=== PATIENT | female | born 1950 | race Caucasian/White ===

== ENCOUNTER → 2018-05-26 | Outpatient (CLI) | payer OTHER ==
[~2018-05-26] MED LIST: CALCIUM600 MG PO; CO Q-10 100 MG1 EACH PO; FISH OIL 1,0001 EAC1 PO; GLIPIZIDE5 MG PO; METFORMIN HCL500 MG PO; ONE DAILY1 EACH PO; OSTERA TABLET1 EACH PO; PRAVASTATIN PO
== END ==
LOC: RAD 14:55
PROVIDERS: ATTEND Family Medicine
DX: R22.41 Localized swelling, mass and lump, right lower limb (principal); M79.89 Other specified soft tissue disorders; I77.89 Other specified disorders of arteries and arterioles
CPT/HCPCS: 93970

== ENCOUNTER 2020-04-30 06:33 | Observation (INO) | payer MEDICARE, OTHER ==
--- NOTE | 2020-04-26 15:16 | Diagnostic Imaging Report ---
Exam: CHEST 2 VIEWS Date: 04/26/2020 3:12 PM INDICATION: ^PRE OP Comparison: None FINDINGS: Lines/Tubes:None Lungs:The lungs are well inflated. No focal consolidation or pulmonary edema. Pleura:No pleural effusion. No pneumothorax. Heart/Mediastinum:Cardiomediastinal silhouette is mildly enlarged. Mild central vascular congestion is noted. Thoracic aorta is tortuous. Bones/Soft Tissues: No acute osseous abnormality. Moderate multilevel degenerative changes of the spine are noted. Upper abdomen: Unremarkable. IMPRESSION: Negative for acute intrathoracic process. Mild cardio megaly and central vascular congestion are noted. Signed by: Chester Strickland MD on 04/26/2020 3:13 PM
[~2020-04-30] VITALS: Ht 165.1 cm; Wt 96.2 kg
[~2020-04-30 06:33] MED LIST changes: +AMOXICILLIN250 MG PO; +FENOFIBRATE145 MG PO; +GABAPENTIN100 MG PO; +GLIMEPIRIDE2 MG PO; +MELOXICAM7.5 MG PO; +PROVENTIL HFA6.7 GM INH; +TRAZODONE HCL100 MG PO; +TYLENOL PO
[2020-04-30] MEDS ORDERED: CELECOXIB 200 MG CAP ONE (07:18)
[2020-04-30] MEDS ORDERED: DEXAMETHASONE SOD PHOS 10 MG/1 ML VIAL ONE (07:19)
[2020-04-30] MEDS ORDERED: CEFAZOLIN SOD 1 GM/NS 50ML 100 ML IV ONE (07:19)
[2020-04-30] MEDS ORDERED: GABAPENTIN 300 MG CAP ONE (07:19)
[2020-04-30] MEDS ORDERED: TRANEXAMIC ACID 1,000 MG/10 ML ML ONE (07:52)
[2020-04-30] MEDS ORDERED: SODIUM CHLORIDE 0.9% 500ML 500 ML ONE ×2 (07:52→08:22)
[2020-04-30] MEDS ORDERED: VANCOMYCIN HCL 1,000 MG ONE (07:52)
[2020-04-30] MEDS ORDERED: CEFAZOLIN SOD 1 GM VIAL ONE (08:21)
[2020-04-30] MEDS ORDERED: ROPIVACAINE 246.25 MG, EPINEPHRINE HCL 1:1000 1ML 0.5 MG, CLONIDINE HCL 0.08 MG, KETORO... INJ ONE ×5 (08:30)
[2020-04-30] MEDS ORDERED: DIPHENHYDRAMINE HCL INJ 50 MG/ML VIAL IV PRN (09:45)
[2020-04-30] MEDS ORDERED: ACETAMINOPHEN 650 MG SUPP PR PRN (09:45)
[2020-04-30] MEDS ORDERED: DOCUSATE SODIUM 100 MG CAP PO PRN (09:45)
[2020-04-30] MEDS ORDERED: ONDANSETRON HCL INJ 2MG/ML 2ML 2 MG/ML VIAL IV PRN (09:45)
--- NOTE | 2020-04-30 10:06 | Operative Report ---
DATE OF PROCEDURE: 04/30/2020 SURGEON: Erwin Post MD HOROLOGIST APPRENTICE: Jarrett Kinney PA-C PREOPERATIVE DIAGNOSIS: Osteoarthritis, left knee. POSTOPERATIVE DIAGNOSIS: Osteoarthritis, left knee. PROCEDURE: Left total knee arthroplasty. INDICATIONS: The patient is a 69-year-old lady, who has end-stage arthritis of her left knee. She has failed conservative management and would like to proceed with a left total knee replacement. The risks and benefits of the procedure have been discussed. All of her questions have been answered. She states she understands and wishes to proceed. PROCEDURE IN DETAIL: The patient was brought to the operating room and placed under general anesthetic. She received prophylactic antibiotics and a regional block and tranexamic acid in the holding area. Her left lower extremity was prepped and draped in a sterile manner. A preoperative time-out was performed. The extremity was exsanguinated and a proximal tourniquet was inflated to 300 mmHg. An anterior incision with a medial parapatellar arthrotomy was performed. Clear synovial fluid was removed from the joint. Soft tissue releases were performed to bring the knee up into flexion with the patella everted. Meniscal remnants, the cruciate ligaments, and marginal osteophytes were removed. A [employer] posterior stabilized knee system was used. An extramedullary cutting guide was used to resect the proximal tibia. The tibial base plate was a size 4. The central fin punch was impacted and attention was directed towards the distal femur. An intramedullary cutting guide was used to resect the distal femur in 5 degrees of valgus and rotation, referencing off a combination of landmarks including Whitesides line, the epicondylar axis, and the posterior condyles. The femoral component was a size 5. The anterior and posterior cuts were made. Trial reductions were performed. A 9 mm ultracongruent tibial insert provided appropriate soft tissue balancing in full extension and 90 degrees of flexion. The patella was resurfaced with a 29 mm x 7.5 mm patellar button. The thickness was checked before and after and was right at 21 mm. Patellar tracking was noted to be concentric. The trial implants were removed. A 100 mL premixed pericapsular BEBETO injection was placed into the surrounding soft tissue. The knee was thoroughly irrigated with a shower tip pulsatile lavage. The components were cemented into place using a single mix of high viscosity Biomet cement, preloaded with antibiotics. Care was taken to remove all extravasated cement. The wound was further irrigated while the cement cured. The arthrotomy was closed after sprinkling 1 g of Ancef powder into the deep joint. The knee was put through flexion and extension to ensure a secure closure of the arthrotomy. The skin was closed with subcuticular Vicryl and harry. A sterile Aquacel bandage was applied. The patient was extubated and transported to the recovery room in stable condition. Blood loss was minimal. All needle and sponge counts were correct. Erwin Post MD DR/BOB /[id number]
[2020-04-30] MEDS ORDERED: FENTANYL CITRATE/PF 100MCG/2 ML INJ ONE ×2 (10:22→19:42)
[2020-04-30] MEDS ORDERED: INSULIN REGULAR, HUMAN 100 UNIT/1 ML 3ML VIAL ONE (10:27)
--- NOTE | 2020-04-30 10:38 | Diagnostic Imaging Report ---
Left knee, 2 views INDICATION: ^post op ^[id number] ^1000 ^n Comparison: None available. Discussion: Postoperative changes from 2 part left knee cemented arthroplasty are noted with patellofemoral resurfacing and spacer. Air and edema are identified within the suprapatellar joint and superficial soft tissues. Femoral and tibial components are in anatomic alignment. No overhang of the tibial component is noted. No notching of the femoral component is noted. Midline anterior skin harry are noted. IMPRESSION: Anatomic alignment postsurgical changes of the 2 part cemented left knee arthroplasty as described above. Signed by: Chester Strickland MD on 04/30/2020 10:35 AM
--- NOTE | 2020-04-30 11:00 | NUR ---
Received patient from PACU via stretcher. Pt groggy but in no apparent distress. Pt denies pain 0/10.
--- NOTE | 2020-04-30 11:23 | NUR ---
Patient request BEZEL CUTTER look for family in waiting area and BEZEL CUTTER unable to find family after several attempts.
[2020-04-30] MEDS: SODIUM CHLORIDE 0.9% 1000ML 1,000 ML IV SCH ×2 (11:32→12:00)
[2020-04-30 11:48] VITALS: BP 131/59
[2020-04-30] MEDS ORDERED: ACETAMINOPHEN 1000 MG/100 ML IV PRN (12:00)
[2020-04-30 12:11] VITALS: BP 131/59
[2020-04-30] MEDS ORDERED: DEXTROSE 50% SYRINGE 50 ML IV PRN (13:15)
[2020-04-30 16:26] VITALS: BP 146/65
[2020-04-30] MEDS: CELECOXIB 100 MG CAP PO SCH (16:40)
[2020-04-30] MEDS: CEFAZOLIN SOD 1 GM/NS 50ML 50 ML IV SCH (16:40)
[2020-04-30] MEDS: GABAPENTIN 100 MG CAP PO SCH (16:40)
[2020-04-30] MEDS: ASPIRIN 325 MG TAB PO SCH (16:40)
[2020-04-30] MEDS: INSULIN REGULAR, HUMAN 100 UNIT/1 ML 3ML VIAL SQ SCH ×2 (17:05→21:00)
[2020-04-30] MEDS: HYDROCODONE/APAP 5MG-325MG TAB PO PRN (17:35)
--- NOTE | 2020-04-30 18:10 | NUR ---
Patient CPM started. Pt tolerating well.
--- NOTE | 2020-04-30 19:00 | NUR ---
Report given to off going nurse. Pt lying in bed semi-fowlers and no apparent distress on CPM. Pt pain 06/24.
--- NOTE | 2020-04-30 19:28 | History and Physical ---
CHIEF COMPLAINT: Left knee osteoarthritis, status post left total knee arthroplasty. HISTORY OF PRESENT ILLNESS: This is a 69-year-old female, multiple comorbidities of type 2 diabetes and hypertension, has chronic left knee pain, underwent status post left knee total arthroplasty performed today by Dr. Post, Orthopedics. The patient was seen postoperatively. She is currently doing well with no complaints. She reports the pain is well controlled. Denies any chest pain, palpitation, nausea, or vomiting. The patient was seen and evaluated at bedside on the medical floor. She is currently doing well with no other issues at this time. REVIEW OF SYSTEMS: Pertinent positive: Chronic left knee pain. The rest of 14-point review of systems have been reviewed with the patient and are negative. ALLERGIES: LEVAQUIN AND VANCOMYCIN. HOME MEDICATIONS: Albuterol, amoxicillin, fenofibrate, glimepiride, meloxicam, trazodone, multivitamin, calcium, Tylenol, and gabapentin. PAST MEDICAL HISTORY: Hyperlipidemia, chronic osteoarthritis, and type 2 diabetes. PAST SURGICAL HISTORY: Status post total left knee arthroplasty. PAST FAMILY HISTORY: Hypertension and diabetes. SOCIAL HISTORY: No drugs. No alcohol. Does not smoke. Good social support. PHYSICAL EXAMINATION: VITAL SIGNS: Temperature is 97.8, pulse 75, respirator rate is 18, blood pressure 146/65, and pulse ox 95% on room air. GENERAL: Not in acute distress. Alert and oriented x3. Cooperative on examination. HEENT: Head; normocephalic, atraumatic. Eyes; pupils are equal, round, and reactive to light bilaterally. PULMONARY: Clear to auscultation bilaterally. No wheezing, no rales, no rhonchi, no crackles appreciated. CARDIOVASCULAR: Positive S1 and S2. No murmurs, rubs, or gallops appreciated. ABDOMEN: Soft, nondistended, and nontender to palpation. Bowel sounds present. MUSCULOSKELETAL: Strength is 5/5 throughout. No evidence of any muscle deficits on examination. SKIN: Intact. Warm to touch. Good cap refill. PSYCHIATRIC: Normal affect and mood. EXTREMITIES: No edema. Good range of motion throughout. LABORATORY FINDINGS: Show CBC none. Chemistry none reported. Serology; coronavirus not detected. IMAGING STUDIES: X-ray of the chest negative for acute intrathoracic process. Mild cardiomegaly with central vascular congestion are noted. Knee x-ray postoperative anatomic align, postsurgical changes of the left knee arthroplasty as described above. IMPRESSION: 1. Chronic left knee osteoarthritis, status post total left knee arthroplasty performed today, 04/30/2020. 2. Type 2 diabetes. 3. Hypertension. PLAN: At this time, continue with postop care, pain control, physical therapy, and occupational therapy. Follow recommendations by Orthopedics. Restart home medications. Add insulin sliding scale and Accu-Cheks as well. Pain control. Lovenox for DVT prophylaxis. PT/OT evaluation. MD DAE Pacheco/MODL /[id number]
[2020-04-30] MEDS ORDERED: MIDAZOLAM HCL 2 MG/2 ML VIAL ONE (19:42)
[2020-04-30 20:00] VITALS: BP 117/59
[2020-04-30] MEDS: KETOROLAC TROMETHAMINE 30 MG/ML VIAL IV PRN (20:15)
[2020-04-30] MEDS ORDERED: TRAZODONE HCL 50 MG TAB PO SCH (21:00)
[2020-04-30] MEDS ORDERED: ZOLPIDEM TARTRATE 5 MG TAB PO PRN (21:00)
[2020-04-30 22:30] VITALS: BP 117/59
[2020-05-01] VITALS: BP 112/80
[2020-05-01] MEDS: CEFAZOLIN SOD 1 GM/NS 50ML 50 ML IV SCH ×2 (00:30→08:17)
[2020-05-01] MEDS: KETOROLAC TROMETHAMINE 30 MG/ML VIAL IV PRN (03:07)
[2020-05-01 04:00] VITALS: BP 134/60
[2020-05-01] MEDS: HYDROCODONE/APAP 7.5MG-325MG 1 EA TAB PO PRN ×2 (04:30→10:53)
[2020-05-01 04:55] LABS: BASOPHILS % 0.2 % (0.0-1.0); EOSINOPHILS % 0.1 % (0.0-6.0); HEMATOCRIT 34.3 % (34.2-44.1); LYMPHOCYTES # (AUTO) 3.1 (1.0-3.2); LYMPHOCYTES % 16.6 % (18.0-39.1); MEAN CORPUSCULAR HEMOGLOBIN 28.9 pg (28-32); MEAN CORPUSCULAR HGB CONC 32.1 g/dL (31-35); MONOCYTES # (AUTO) 1.2 (0.2-0.8); MONOCYTES % 6.6 % (4.4-11.3); NEUTROPHILS # (AUTO) 14.4 (2.1-6.9); NEUTROPHILS % 75.9 % (38.7-80.0); PLATELET COUNT 302 x10e3/uL (140-360); RED BLOOD COUNT 3.81 x10e6/uL (3.6-5.1); RED CELL DISTRIBUTION WIDTH 13.4 % (11.7-14.4)
[2020-05-01 05:13] LABS: ALANINE AMINOTRANSFERASE 22 IU/L (0-55); ALBUMIN 3.2 g/dL (3.5-5.0); ALBUMIN/GLOBULIN RATIO 1.1 (0.8-2.0); ALKALINE PHOSPHATASE 42 IU/L (40-150); ANION GAP 11.1 mmol/L (8-16); BLOOD UREA NITROGEN 19 mg/dL (7-26); BUN/CREATININE RATIO 24 (6-25); CALCIUM 9.1 mg/dL (8.4-10.2); CARBON DIOXIDE 26 mmol/L (22-29); CHLORIDE 106 mmol/L (98-107); CREATININE, SERUM 0.79 mg/dL (0.57-1.11); EST GLOMERULAR FILTRATION RATE > 60 ML/MIN (60-); GLUCOSE 103 mg/dL (74-118); POTASSIUM 5.1 mmol/L (3.5-5.1); SODIUM 138 mmol/L (136-145)
--- NOTE | 2020-05-01 05:30 | NUR ---
APPLIED STOCKING TO LEFT KNEE.
--- NOTE | 2020-05-01 06:00 | NUR ---
CPM STARTED. PATIENT TOLERATED WELL
[2020-05-01] MEDS: HYDROCODONE/APAP 5MG-325MG TAB PO PRN (07:14)
[2020-05-01] MEDS: INSULIN REGULAR, HUMAN 100 UNIT/1 ML 3ML VIAL SQ SCH ×2 (07:30→11:30)
--- NOTE | 2020-05-01 07:53 | NUR ---
DR TOM OFFICE PREARRANGED FOLLOWING DISCHARGE PLAN OF:HOME [id number] [facility] WITH INTERIM CONFIRMED WITH KATER[facility] [phone] DME 3 IN ONE COMMODE PROVIDED BY [employer] [employer] [phone] MARGE PT STATES ALREADY HAS A WALKER RANDALL SIGNED AND ON CHART COPY LEFT WITH PATIENT GAVE CARD FOR QUESTIONS AND OR CONCERNS.
[2020-05-01 08:00] VITALS: BP 129/62
[2020-05-01] MEDS: ASPIRIN 325 MG TAB PO SCH (08:17)
[2020-05-01] MEDS: CELECOXIB 100 MG CAP PO SCH (08:17)
[2020-05-01] MEDS: GABAPENTIN 100 MG CAP PO SCH (08:17)
[2020-05-01 08:41] VITALS: BP 129/62
[2020-05-01] MEDS ORDERED: FENOFIBRATE 145 MG TAB PO SCH (09:00)
--- NOTE | 2020-05-01 13:06 | NUR ---
Patient received a discharge order from ROBERT Patterson. Patient was given discharge instructions, education, and follow up instructions. Patient was also give discharge papers from Dr. Post's office with detailed information for post-op knee. Patient and significant other verbalized understanding. Patient IV removed at 1305 and covered with a C/D/I dressing. Addendum: 05/01/20 at 1332 by Freya Bird RN Patient wheeled to car at 1325. No issues or complaints.
[2020-05-01 13:14] VITALS: BP 142/73
[2020-05-01] MEDS ORDERED: ONDANSETRON HCL 4 MG ORAL DISINTEGRATING TAB PO PRN (13:15)
[2020-05-01] MEDS ORDERED: ENOXAPARIN SOD INJ 40 MG/0.4 ML SYR SC SCH (17:00)
[2020-05-01] MEDS ORDERED: CELECOXIB 200 MG CAP PO SCH (17:00)
== END 2020-05-01 13:25 | disposition home health service (06) ==
LOC: OR 06:33 → PACU V 09:42 → MED/SURG 11:06
PROVIDERS: ADMIT Specialist; ATTEND Specialist
DX: M17.12 Unilateral primary osteoarthritis, left knee (principal); J45.909 Unspecified asthma, uncomplicated; F17.210 Nicotine dependence, cigarettes, uncomplicated; E11.610 Type 2 diabetes mellitus with diabetic neuropathic arthropathy; E11.42 Type 2 diabetes mellitus with diabetic polyneuropathy; E11.21 Type 2 diabetes mellitus with diabetic nephropathy; E66.01 Morbid (severe) obesity due to excess calories; Z68.35 Body mass index [BMI] 35.0-35.9, adult; Z88.1 Allergy status to other antibiotic agents; E78.5 Hyperlipidemia, unspecified; M81.0 Age-related osteoporosis without current pathological fracture; F32.9 Major depressive disorder, single episode, unspecified; Z83.3 Family history of diabetes mellitus; Z82.49 Family history of ischemic heart disease and other diseases of the circulatory system; Z79.84 Long term (current) use of oral hypoglycemic drugs; Z01.812 Encounter for preprocedural laboratory examination; Z01.818 Encounter for other preprocedural examination; Z20.828 Contact with and (suspected) exposure to other viral communicable diseases
CPT/HCPCS: 27447; 36415 ×2; 71046; 73560; 80053; 82948; 85025; 86850; 86900; 86920; 96372; 97110; 97116 ×2; 97161; 97530; C1713; G0378 ×2; J0171; J0690 ×3; J1100; J1817; J1885 ×2; J2250; J2795; J3010; J3370; J7030; J7040; U0002

== ENCOUNTER 2020-12-03 07:05 | Observation (INO) | payer MEDICARE ==
[~2020-12-03 07:05] MED LIST changes: +LISINOPRIL2.5 MG PO; +TYLENOL # 31 EA PO; +ZETIA10 MG PO
[2020-12-03] MEDS ORDERED: ROPIVACAINE 246.25 MG, EPINEPHRINE HCL 1:1000 1ML 0.5 MG, CLONIDINE HCL 0.08 MG, KETORO... INJ ONE ×5 (08:00)
[2020-12-03] MEDS ORDERED: DEXAMETHASONE SOD PHOS 10 MG/1 ML VIAL ONE (08:46)
[2020-12-03] MEDS ORDERED: GABAPENTIN 300 MG CAP ONE (08:46)
[2020-12-03] MEDS ORDERED: CELECOXIB 200 MG CAP ONE ×2 (08:46→16:41)
[2020-12-03] MEDS ORDERED: TRANEXAMIC ACID 1,000 MG/10 ML ML ONE (09:18)
[2020-12-03] MEDS ORDERED: SODIUM CHLORIDE 0.9% 500ML 500 ML ONE ×2 (09:19→09:34)
[2020-12-03] MEDS ORDERED: Vancomycin IV 500 MG ONE (09:19)
[2020-12-03] MEDS ORDERED: ACETAMINOPHEN 1000 MG/100 ML 100 ML IV ONE (10:15)
[2020-12-03] MEDS ORDERED: FENTANYL CITRATE/PF 100MCG/2 ML INJ ONE (11:20)
[2020-12-03] MEDS ORDERED: MORPHINE SULFATE INJ 4 MG/ML INJ 1ML ONE (12:04)
[2020-12-03 12:30] VITALS: BP 122/59
[2020-12-03] MEDS ORDERED: SEVOFLURANE INHAL SOLN 250 ML PEN BTL ONE (13:20)
[2020-12-03] MEDS ORDERED: ONDANSETRON HCL INJ 2MG/ML 2ML 2 MG/ML VIAL ONE (13:20)
[2020-12-03] MEDS ORDERED: POVIDONE IODINE 0.05% 0.05 % ML PO ONE (13:20)
[2020-12-03] MEDS ORDERED: LIDOCAINE HCL 2% LOCAL INJ 5 ML SDV VIAL INJ ONE (13:20)
[2020-12-03] MEDS ORDERED: PROPOFOL IV EMULSION 10 MG/ML 20 ML VIAL ONE (13:20)
[2020-12-03] MEDS ORDERED: LABETALOL HCL 5 MG/ML 20ML VIAL ONE (13:20)
[2020-12-03] MEDS ORDERED: HYDROCODONE/APAP 5MG-325MG TAB PO PRN (13:45)
[2020-12-03] MEDS ORDERED: KETOROLAC TROMETHAMINE 30 MG/ML VIAL IV PRN (13:45)
[2020-12-03] MEDS ORDERED: HYDROCODONE/APAP 7.5MG-325MG 1 EA TAB PO PRN (13:45)
[2020-12-03] MEDS ORDERED: DIPHENHYDRAMINE HCL INJ 50 MG/ML VIAL IV PRN (13:45)
[2020-12-03] MEDS ORDERED: ONDANSETRON HCL INJ 2MG/ML 2ML 2 MG/ML VIAL IV PRN (14:00)
[2020-12-03] MEDS ORDERED: SODIUM CHLORIDE 0.9% 1000ML 1,000 ML IV SCH (14:00)
[2020-12-03] MEDS ORDERED: ACETAMINOPHEN 1000 MG/100 ML IV PRN (15:00)
[2020-12-03] MEDS ORDERED: Cefazolin 1 GM in SODIUM CHLORIDE 0.9% 50ML 50 ML IV SCH (16:00)
[2020-12-03] MEDS ORDERED: SODIUM CHLORIDE 0.9% 50ML 50 ML ONE (16:40)
[2020-12-03] MEDS ORDERED: ASPIRIN 81 MG ENTERIC COATED PO ONE (16:41)
[2020-12-03] MEDS ORDERED: DOCUSATE SODIUM 100 MG CAP ONE (16:42)
[2020-12-03] MEDS ORDERED: SODIUM CHLORIDE 0.9% 250ML 250 ML ONE (16:43)
[2020-12-03] MEDS ORDERED: DOCUSATE SODIUM 100 MG CAP PO SCH (17:00)
[2020-12-03] MEDS ORDERED: CELECOXIB 200 MG CAP PO SCH (17:00)
[2020-12-03] MEDS ORDERED: ASPIRIN 81 MG ENTERIC COATED PO SCH (17:00)
[2020-12-03] MEDS ORDERED: ZOLPIDEM TARTRATE 5 MG TAB PO PRN (21:00)
[2020-12-04] MEDS ORDERED: ASPIRIN 81 MG ENTERIC COATED PO SCH (10:30)
[2020-12-04] MEDS ORDERED: CELECOXIB 200 MG CAP PO SCH (10:30)
[2020-12-04 11:20] LABS: HEMATOCRIT 33.9 % (34.2-44.1); HEMOGLOBIN 11.2 g/dL (12.0-16.0)
[2020-12-04] MEDS ORDERED: DOCUSATE SODIUM 100 MG CAP ONE (11:53)
[2020-12-04] MEDS ORDERED: SODIUM CHLORIDE 0.9% 50ML 50 ML ONE (11:54)
== END 2020-12-04 12:10 | disposition home or self-care (01) ==
LOC: OR 07:05 → MED/SURG 12:30
PROVIDERS: ADMIT Specialist; ATTEND Specialist
DX: M17.12 Unilateral primary osteoarthritis, left knee (principal); I10 Essential (primary) hypertension; F41.9 Anxiety disorder, unspecified; J45.909 Unspecified asthma, uncomplicated; E11.9 Type 2 diabetes mellitus without complications; Z87.442 Personal history of urinary calculi; Z87.440 Personal history of urinary (tract) infections; Z88.1 Allergy status to other antibiotic agents
CPT/HCPCS: 27447; 36415 ×2; 73560; 82948 ×2; 85014; 85018; 86850; 86900; 86920; 97110; 97116 ×2; 97162; 97530; C1713; G0378 ×2; J0131; J0171; J0690 ×2; J1100; J1885; J2001; J2270; J2405; J2704; J2795; J3010; J3370; J3490; J7040; J7050